=== PATIENT | female | born 1950 | race African-American/Black ===

== ENCOUNTER → 2017-08-26 | Outpatient (CLI) | payer MEDICARE, MEDICAID ==
--- NOTE | 2017-08-26 15:36 | XCELERA REPORT ---
[address] [address] Lower Extremity Venous Evaluation Name: TROY BLOUNT Age: 66 yrs Gender: Female : 1950 Patient Status: Outpatient Patient Location: Study Date: 08/26/2017 01:59 PM Procedure: Color flow and duplex imaging of the veins of the right lower extremity as well as the left Common Femoral vein. Reason For Study: RLE PAIN Ordering Physician: DAVID HERR Performed By: Bhumi Kerr Right Sided Venous Evaluation Normal vessel filling wall to wall, compression and augmentation as well as Colour flow down to the infrageniculate veins. Left Sided Venous Evaluation The left common femoral vein is fully compressible. Spontaneous and phasic flow is present in the left common femoral vein. Interpretation Summary No duplex evidence of DVT or obstruction in the right lower extremity nor in the left Common Femoral vein. : DAVID HERR > Robert Ramírez
== END ==
LOC: SP 13:41
PROVIDERS: ATTEND Family Medicine
DX: M79.661 Pain in right lower leg (principal)
CPT/HCPCS: 93971